=== PATIENT | female | born 1990 | race Caucasian/White ===

== ENCOUNTER 2021-04-01 09:05 | Emergency (ER) | payer BC ==
[~2021-04-01] VITALS: Ht 162.6 cm; Wt 100.2 kg
[2021-04-01 11:03] LABS: HEMOGLOBIN 13.5 gm/dl (12.3-15.3); RED BLOOD COUNT 4.36 M/UL (4.00-5.10); WHITE BLOOD COUNT 7.1 K/UL (4.5-11.0)
[2021-04-01 11:26] LABS: BUN/CREATININE RATIO 7 (0-10)
[2021-04-01] MEDS ORDERED: ERYTHROMYCIN O3.5 GM OU (12:42)
== END 2021-04-01 13:08 | disposition home or self-care (01) ==
LOC: ER1 09:05
PROVIDERS: Physician Assistant
DX: Z23 Encounter for immunization (principal); U07.1 COVID-19; H10.9 Unspecified conjunctivitis; J45.909 Unspecified asthma, uncomplicated; Z90.89 Acquired absence of other organs
CPT/HCPCS: 80053; 85025; 99283; M0243

== ENCOUNTER → 2021-04-16 | Outpatient (CLI) | payer OTHER ==
[~2021-04-16] MED LIST: ERYTHROMYCIN O3.5 GM OU
== END ==
LOC: CT 15:40
DX: J45.909 Unspecified asthma, uncomplicated (principal); R07.89 Other chest pain; R06.09 Other forms of dyspnea; R06.02 Shortness of breath
CPT/HCPCS: 71275; Q9967